=== PATIENT | male | born 1990 | race Caucasian/White ===

== ENCOUNTER 2019-06-23 07:08 | Emergency (ER) | payer MEDICAID ==
[~2019-06-23] VITALS: Ht 180.3 cm; Wt 98.9 kg
[2019-06-23 07:15] VITALS: BP 135/82
--- NOTE | 2019-06-23 07:20 | NUR ---
PT AMB TO BED 10 STEADY GAIT. REPORT TO CORRINE CENTENO.
--- NOTE | 2019-06-23 07:40 | NUR ---
4 days sorethroat no cough and colds . tylenol taken with some relief,pain on swallowing 07/16.denies sob.awake,alert, afibrile, dry sore lips , congested tonsils ,sce ,cbs blf. pmhx none.
--- NOTE | 2019-06-23 07:51 | NUR ---
dr mercedes at bedside evaluating pt.
[2019-06-23 08:07] VITALS: BP 135/82
--- NOTE | 2019-06-23 08:08 | NUR ---
Patient discharged with v/s stable. Written and verbal after care instructions given and explained regarding canker sore. Patient alert, oriented and verbalized understanding of instructions. Ambulatory with steady gait. All questions addressed prior to discharge. ID band removed. Patient advised to follow up with PMD. Rx of prednisone given. Patient educated on indication of medication including possible reaction and side effects. Opportunity to ask questions provided and answered.Excuse from work given.
== END 2019-06-23 08:08 | disposition home or self-care (01) ==
LOC: MED 07:08
DX: J02.8 Acute pharyngitis due to other specified organisms (principal); K12.0 Recurrent oral aphthae
CPT/HCPCS: 99283